=== PATIENT | male | born 1990 | race African-American/Black ===

== ENCOUNTER 2021-09-06 15:33 | Emergency (ER) | payer BC, SELFPAY ==
[2021-09-06 15:44] VITALS: BP 140/81; PULSE 92; RESP 16; TEMP 38.2; O2SAT 98
--- NOTE | 2021-09-06 15:48 | ED.URI ---
HPI - URI/Sore Throat General Chief Complaint: Upper Respiratory Infection Stated Complaint: chills/bodyache yesterday/no tastebuds Time Seen by Provider: 09/06/21 15:48 Source: patient and family History of Present Illness HPI Narrative: PATIENT PRESENTS WITH A ONE DAY HISTORY OF NASAL CONGESTION, COUGH, GENERALIZED BODY ACHES. NO SHORTNESS OF BREATH AND NO CHEST PAIN. MD elicited complaint: rhinorrhea and nasal congestion Related Data Allergies Allergy/AdvReac Type Severity Reaction Status Date / Time No Known Allergies Allergy Verified 09/06/21 15:54 Review of Systems Review of Systems: CONSTITUTIONAL: Denies chills, or sweats. Reports fever and generalized body aches EYES: Denies visual changes, redness, or discharge. ENT: Denies otalgia. Reports nasal congestion runny nose and sore throat CARDIOVASCULAR: Denies chest pain, palpitations, or edema. RESPIRATORY: Denies dyspnea. Reports occasional cough GASTROINTESTINAL: Denies abdominal pain, nausea, vomiting, or diarrhea. GENITOURINARY: Denies dysuria or hematuria. SKIN: Denies rash or itching. MUSCULOSKELETAL: Denies back pain, joint pain, or myalgia. Reports generalized body aches NEUROLOGIC: Denies headache, numbness, or weakness. PSYCHIATRIC: Denies anxiety or depression. PMFSH Comments At time of signature, agree with nursing past medical, surgical, social and family history. There is no relevant family history pertinent to the presenting complaint Exam Narrative: The patient is a well-developed, well-nourished in no acute distress. SKIN: Skin is warm and dry without erythema, swelling or exudate. There is good turgor. No tenting. HEAD: Atraumatic. Normocephalic. No temporal or scalp tenderness. EYES: Moist and bright. Sclera and conjunctivae normal. No discharge. PERRLA. Extraocular motions intact. Gross visual acuity intact. EARS: Pinna is normal shape and contour. Clear external auditory canals. TM pearly mccoy with good cone of light, no erythema or suppuration. Bilateral cerumen noted no gross hearing deficit. NOSE: pink, moist mucosa with good air movement. Clear rhinorrhea without nasal flaring. Septum midline. Mouth: moist mucous membranes. THROAT; mild erythema noted to posterior oropharynx with moderate postnasal drainage. Without exudate or ulceration.. Uvula midline. Normal movement of soft palate. NECK: Supple and nontender with full range of motion without discomfort. No meningeal signs. LUNGS: Equal and bilateral breath sounds without wheezes, rales or rhonchi. CHEST: The chest wall is without retractions or use of accessory muscles. HEART: Has a regular rate and rhythm without murmur, gallops, click or rub. ABDOMEN: Soft, nontender with positive active bowel sounds. No rebound tenderness. EXTREMITIES: Without cyanosis, clubbing or edema. Equal 2+ distal pulses and 2 second capillary refill noted. NEUROLOGIC: alert, active, . The patient moves all extremities with normal muscle strength. Normal muscle tone is noted. Normal coordination is noted. NO focal neurological findings noted. Course Course Level of Care: Express Care Visit Vital Signs Vital signs: Vital Signs Temperature 38.2 C H 09/06/21 15:44 Pulse Rate 92 09/06/21 15:44 Respiratory Rate 16 09/06/21 15:44 Blood Pressure 140/81 09/06/21 15:44 Pulse Oximetry 98 09/06/21 15:44 Temperature 38.2 C H 09/06/21 15:44 Pulse Rate 92 09/06/21 15:44 Respiratory Rate 16 09/06/21 15:44 Blood Pressure 140/81 09/06/21 15:44 Pulse Oximetry 98 09/06/21 15:44 Please ILDA schedule a followup visit with your personal physician for further evaluation and treatment. Including recheck and discussion of your blood pressure. If your symptoms persist, change or worsen significantly before you can contact your personal physician then please, without delay, go to the emergency department for further evaluation Discussed with patient hypertension. Today's blood pressure higher than carlee
[2021-09-07 20:41] LABS: SARS-CoV-2 RNA PCR Positive
== END 2021-09-06 16:20 | disposition home or self-care (01) ==
PROVIDERS: Emergency Provider Nurse Practitioner Family; PCP Internal Medicine
DX: U07.1 COVID-19 (principal)
CPT/HCPCS: 99213; C9803; G0463; U0003; U0005